=== PATIENT | female | born 1970 | race Caucasian/White ===

== ENCOUNTER 2017-10-07 13:00 | Emergency (ER) | payer BC | END 2017-10-07 14:21 | disposition home or self-care (01) | LOC: E/R 13:00 | DX: J02.9 Acute pharyngitis, unspecified (principal) | CPT/HCPCS: 99283 ==

== ENCOUNTER 2018-02-22 13:13 | Emergency (ER) | payer BC ==
[2018-02-22] MEDS: IBUPROFEN 600 MG TAB PO (15:04)
== END 2018-02-22 15:51 | disposition home or self-care (01) ==
LOC: FTE 13:13
DX: K08.89 Other specified disorders of teeth and supporting structures (principal); Z79.82 Long term (current) use of aspirin; Z87.891 Personal history of nicotine dependence
CPT/HCPCS: 99283

== ENCOUNTER 2018-04-05 16:43 | Inpatient (IN) | payer BC ==
[2018-04-05 17:40] LABS: ADD UMIC NO; UR ASCORBIC ACID NEGATIVE (NEGATIVE); UR BACTERIA FEW /HPF (NONE SEEN); UR BILIRUBIN (Dip) NEGATIVE (NEGATIVE); UR BLOOD (Dip) NEGATIVE (NEGATIVE); UR CLARITY SLIGHTLY CLOUDY (CLEAR); UR COLOR YELLOW (YELLOW); UR GLUCOSE (Dip) NEGATIVE (NEGATIVE); UR KETONES (Dip) NEGATIVE (NEGATIVE); UR LEUKOCYTE ESTERASE (Dip) NEGATIVE Leu/ul (NEGATIVE); UR NITRITE (Dip) NEGATIVE (NEGATIVE); UR RBC 1 /HPF (0-5); UR SPECIFIC GRAVITY (Dip) 1.014 (1.003-1.030); UR SQUAMOUS EPITHELIAL CELL FEW /HPF (FEW); UR TOTAL PROTEIN (Dip) NEGATIVE (NEGATIVE); UR UROBILINOGEN (Dip) NEGATIVE (NEGATIVE); UR WBC 3 /HPF (0-5)
[2018-04-05 17:59] LABS: AMPHETAMINE/METHAMPHETAMINE Negative (NEGATIVE); BARBITURATES Negative (NEGATIVE); BENZODIAZEPINES Negative (NEGATIVE); CANNABINOIDS Positive (NEGATIVE); OPIATES Negative (NEGATIVE)
[2018-04-05 18:03] LABS: COCAINE Negative (NEGATIVE)
[2018-04-05 19:23] LABS: ADD MAN DIFF? NO
[2018-04-05 19:26] LABS: WHITE BLOOD COUNT 8.7 10^3/ul (4.8-10.8)
[2018-04-05 19:26] LABS: BASOPHIL # 0.1 10^3/ul (0.0-0.1); BASOPHILS % 0.9 % (0.0-2.0); EOSINOPHILS # 0.3 10^3/ul (0.0-0.5); EOSINOPHILS % 2.9 % (0.0-7.0); HEMATOCRIT 45.7 % (37.0-47.0); HEMOGLOBIN 15.2 g/dl (12.0-16.0); LYMPHOCYTES # 1.4 10^3/ul (0.8-2.9); LYMPHOCYTES % 16.3 % (15.0-51.0); MEAN CORPUSCULAR HEMOGLOBIN 31.9 pg (29.0-33.0); MEAN CORPUSCULAR HGB CONC 33.3 g/dl (32.0-37.0); MEAN CORPUSCULAR VOLUME 95.8 fl (82.0-101.0); MEAN PLATELET VOLUME 9.2 fl (7.4-10.4); MONOCYTE # 0.6 10^3/ul (0.3-0.9); NEUTROPHIL # 6.3 10^3/ul (1.6-7.5); NEUTROPHILS % 72.3 % (39.0-77.0); PLATELET COUNT 404 10^3/UL (140-415); RED BLOOD COUNT 4.77 10^6/ul (4.20-5.40); RED CELL DISTRIBUTION WIDTH 14.7 % (11.5-14.5)
[2018-04-05 19:41] LABS: INR 0.85; PROTIME 11.7 Sec (11.9-14.9); PT RATIO 0.9
[2018-04-05 19:42] LABS: PARTIAL THROMBOPLASTIN TIME 33.2 Sec (25.0-35.0)
[2018-04-05 19:43] LABS: ANION GAP 13 (8-16); BLOOD UREA NITROGEN 15 mg/dl (7-20); CARBON DIOXIDE 29 mmol/L (21-31); CHLORIDE 101 mmol/L (97-110); CREATININE 0.85 mg/dl (0.44-1.00); GLUCOSE 98 mg/dl (70-220); POTASSIUM 4.7 mmol/L (3.5-5.1); SODIUM 138 mmol/L (135-144)
[2018-04-05] MEDS: SOD CHLORIDE 0.9% 100 ML (21:13)
[2018-04-05] MEDS: IOHEXOL 350MG/ML 50 ML BTL (21:14)
[2018-04-05] MEDS ORDERED: ONDANSETRON 4 MG INJ IV (23:00)
[2018-04-05] MEDS ORDERED: DOCUSATE SODIUM 100 MG CAP PO (23:00)
[2018-04-05] MEDS ORDERED: BISACODYL (EC) 5 MG TAB PO (23:00)
[2018-04-05] MEDS ORDERED: LABETALOL HCL 20MG INJ IV (23:00)
[2018-04-05 23:43] LABS: HEMOGLOBIN A1C 5.4 % (0-5.9)
[2018-04-06] MEDS: SOD CHLORIDE 0.9% 1,000 ML IV (00:48)
[2018-04-06 05:00] LABS: ADD MAN DIFF? NO
[2018-04-06 05:05] LABS: BASOPHIL # 0.1 10^3/ul (0.0-0.1); EOSINOPHILS # 0.2 10^3/ul (0.0-0.5); EOSINOPHILS % 3.2 % (0.0-7.0); HEMATOCRIT 41.2 % (37.0-47.0); HEMOGLOBIN 13.9 g/dl (12.0-16.0); LYMPHOCYTES # 1.7 10^3/ul (0.8-2.9); LYMPHOCYTES % 24.3 % (15.0-51.0); MEAN CORPUSCULAR HGB CONC 33.7 g/dl (32.0-37.0); MEAN CORPUSCULAR VOLUME 94.7 fl (82.0-101.0); MEAN PLATELET VOLUME 9.3 fl (7.4-10.4); MONOCYTE # 0.5 10^3/ul (0.3-0.9); MONOCYTES % 7.8 % (0.0-11.0); NEUTROPHIL # 4.4 10^3/ul (1.6-7.5); NEUTROPHILS % 63.3 % (39.0-77.0); PLATELET COUNT 337 10^3/UL (140-415); RED BLOOD COUNT 4.35 10^6/ul (4.20-5.40)
[2018-04-06 05:05] LABS: WHITE BLOOD COUNT 6.9 10^3/ul (4.8-10.8)
[2018-04-06 05:28] LABS: ANION GAP 9 (8-16); BLOOD UREA NITROGEN 11 mg/dl (7-20); CALCIUM 9.6 mg/dl (8.4-10.2); CARBON DIOXIDE 28 mmol/L (21-31); CHLORIDE 105 mmol/L (97-110); GLUCOSE 94 mg/dl (70-220); PHOSPHORUS 4.3 mg/dl (2.5-4.9); POTASSIUM 5.1 mmol/L (3.5-5.1); SODIUM 137 mmol/L (135-144)
[2018-04-06] MEDS: PANTOPRAZOLE 40 MG INJ IV (06:26)
[2018-04-06] MEDS: DOCUSATE SODIUM 100 MG CAP PO ×2 (09:00→20:43)
[2018-04-06] MEDS: ACETAMINOPHEN 650MG/20.3ML CUP PO ×2 (11:43→19:34)
[2018-04-07] MEDS: DOCUSATE SODIUM 100 MG CAP PO (08:18)
== END 2018-04-07 16:40 | disposition home or self-care (01) | DRG 66 ==
LOC: ICU 22:18 → FTE 16:43 → 6WM 04-06 17:31
DX: I62.9 Nontraumatic intracranial hemorrhage, unspecified (principal); I10 Essential (primary) hypertension; F17.200 Nicotine dependence, unspecified, uncomplicated; H53.2 Diplopia
CPT/HCPCS: 70450; 70496; 70553; 80048; 80307; 81001; 81003; 81025; 82962; 83036; 83735; 84100; 85025; 85610; 85730; 87081; 92610; 93005; 97161; 97165; 99285-25